=== PATIENT | female | born 1955 | race Caucasian/White ===

== ENCOUNTER 2016-11-08 14:45 | Inpatient (IN) | payer MEDICARE, MEDICAID ==
[~2016-11-08] VITALS: Ht 175.3 cm; Wt 75.8 kg
--- NOTE | ~2016-11-08 | CON ---
PATIENT'S NAME: PEGGY ALVAREZ [facility] AGE: 61 Y [address] ROOM: [address] [place], [place] [address] LOCATION: [facility] ADMIT DATE: 11/08/2016 Consultation DISCHARGE DATE: FAMILY PHYSICIAN: Yamileth Kebede MD ATTENDING PHYSICIAN: JOHN ASHER DATE OF CONSULTATION: 11/09/2016 REFERRING PHYSICIAN: Bill COLLADO MD This is a [facility]ph[facility] consultation. REASON FOR CONSULTATION: History of renal allograft transplant, high-risk medications. HISTORY OF PRESENT ILLNESS: This is a 61-year-old female patient, who is a previous patient of Dr. Savage, who has had a history of end-stage renal disease, status post renal allograft transplant, on immunosuppressive therapy of Prograf and Deltasone. The patient does report a quite extensive recent past medical history that includes histoplasmosis diagnosis on October 10, 2016 at [facility]. The patient was started on Vfend at that time, and her CellCept immunosuppressive therapy was held. She does usually take Prograf 0.5 mg every morning and 1 mg every evening. The patient's transplant did go well according to the patient. She was hospitalized for approximately 6 days and did well throughout her therapy. She did return for a routine checkup and was noted to have a collapsed ureter of the transplanted kidney. At that time, a balloon was attempted, however, was unsuccessful. The patient did undergo a nephroureteral stent at that time and has had routine stent exchanges every 3 months since 2010. The patient's baseline creatinine has been 1.3, however, over the last few weeks, it has been noted to be greater than 2. Today, creatinine is 1.9. At the time of exam, the patient has been taking her Prograf as well as steroid therapy. CellCept is being held. She continues to follow with Dr. Livingston and Dr. Crockett at [facility]. The patient does report that she continues to straight cath all of her voids prior to her admission. The patient is scheduled to undergo closed ORIF of the right elbow with Dr. Asher later this afternoon. It has been asked Dr. Savage to provide recommendations for the patient's immunosuppressive therapy as well as monitoring her kidney status throughout her hospitalization. PAST MEDICAL HISTORY: As listed above includin. Type 2 diabetes. PATIENT'S NAME: PEGGY ALVAREZ [facility] AGE: 61 Y [address] ROOM: [address] [place], [place] [address] LOCATION: [facility] ADMIT DATE: 11/08/2016 Consultation DISCHARGE DATE: FAMILY PHYSICIAN: Yamileth Kebede MD ATTENDING PHYSICIAN: JOHN ASHER 2. History of end-stage renal disease with AV fistula placement. 3. Status post renal allograft transplant, on immunosuppressive therapy. 4. Hypertension. 5. Hypothyroidism. 6. Recent right elbow fracture. 7. History of recent diagnosis of histoplasmosis at [facility]. PAST SURGICAL HISTORY: 1. AV fistula placement. 2. Cholecystectomy. 3. Renal allograft transplant in 2010. 4. Coronary angiogram in 2007. 5. Tunneled dialysis catheter placement and AV fistula placement in 2007. FAMILY HISTORY: Reviewed and noncontributory. The patient denies any history of kidney disease or dialysis in her family. SOCIAL HISTORY: The patient is a former smoker. She denies any current smoking. She does live in an assisted living in [place], [place]. She did recently relocate from [place], [place] in which at that time, she was a dialysis patient of Dr. Bagley at the [facility]. This was between 2007 and 2010 at the time of transplant. She does deny any use of alcohol use. ALLERGIES: SULFA. CURRENT HOME MEDICATIONS: 1. Tylenol 325 mg 2 tablets p.o. q.6 hours. 2. Norvasc 5 mg daily. 3. Coreg 25 mg twice a day. 4. Lasix 40 mg twice a day. 5. Glucagon 1 mg IM p.r.n. hypoglycemia. 6. Humulin R as directed. 7. Levothyroxine 50 mcg daily. 8. Melatonin 3 mg daily. 9. Metolazone 2.5 mg 3 times a week on Monday, Monday, and Monday. 10. Multivitamin 1 tablet daily. 11. NPH 6 units subcu daily before supper and 8 units subcu daily before breakfast. 12. Deltasone 10 mg daily. 13. Ranitidine 150 mg 1 tablet daily. 14. Tacrolimus 0.5 mg every morning and 1 mg every evening. 15. Vfend 200 mg twice a day. PATIENT'S NAME: PEGGY ALVAREZ [facility] AGE: 61 Y [address] ROOM: [address] [place], [place] [address] LOCATION: [facility] ADMIT DATE: 11/08/2016 Consultation DISCHARGE DATE: FAMILY PHYSICIAN: Yamileth Kebede MD ATTENDING PHYSICIAN: JOHN ASHER REVIEW OF SYSTEMS: GENERAL: Denies any fever, chills, or night sweats. EYES: No double vision or blurred vision. NOSE: No epistaxis or rhinorrhea. MOUTH: No gingival bleeding. THROAT: No sore throat, hoarseness, or cough. RESPIRATORY: Denies wheezing or hemoptysis. CARDIOVASCULAR: Denies chest pain or palpitations. GASTROINTESTINAL: Denies nausea, vomiting, or diarrhea. HEMATOLOGICAL: Denies bruising or easy bleeding. GENITOURINARY: Continues to make urine. Denies any frequency, urgency, or hesitancy. She does continue to have to self-catheterize to void. MUSCULOSKELETAL: Right arm pain secondary to elbow fracture. IMMUNOLOGICAL: Positive for history of immunosuppressive therapy secondary to renal allograft transplantation. History of histoplasmosis infection. PHYSICAL EXAMINATION: VITAL SIGNS: Blood pressure 125/53, pulse 62, respirations 16, temperature is 97.8. Weight is 75.8 kg. GENERAL: On exam, this is an alert, oriented, slightly forgetful female patient, who is in no acute distress. HEENT: Her head is normocephalic and atraumatic. Eyes: Pupils are equal, round, react briskly to light and accommodation. Nose: Midline. Mouth: No gingival bleeding. Throat: No lymphadenopathy or carotid bruits. No JVD. LUNGS: Sounds are diminished in the bases bilaterally. CARDIOVASCULAR: Regular rate and rhythm with a grade 1 to 2 over 6 systolic ejection murmur heard best at the right second intercostal space. ABDOMEN: Soft, nontender, and nondistended. Bowel sounds positive. EXTREMITIES: Show no signs of peripheral edema, clubbing, or cyanosis. Right upper extremity is in a sling. SKIN: Warm and dry. LABORATORY DATA: WBC 7.4, hemoglobin 10.7, platelets 213. BUN 58, creatinine 2, glucose 185, potassium 5, chloride 102, CO2 of 26. Total bilirubin is 0.3. INR is 1. IMAGING DATA: X-ray shows cardiac enlargement with mild vascular congestion. EKG shows left bundle branch block with no acute ST-T wave abnormalities. ASSESSMENT AND PLAN: 1. Chronic kidney disease stage 3, status post renal allograft transplant. The patient is currently taking Prograf as well as prednisone. We will continue her on her current immunosuppressive therapy. The patient has PATIENT'S NAME: PEGGY ALVAREZ [facility] AGE: 61 Y [address] ROOM: [place] [address] LOCATION: [facility] ADMIT DATE: 11/08/2016 Consultation DISCHARGE DATE: FAMILY PHYSICIAN: Yamileth Kebede MD ATTENDING PHYSICIAN: JOHN ASHER been made aware of risk of poor healing with her immunosuppression. We have requested records from [facility] as to the reasoning behind the patient not taking her CellCept at this time. We have contacted Lizbeth, her mail service coordinator, for further recommendations. 2. Right elbow fracture. Per Orthopedics. The patient is scheduled for a close reduction later this afternoon. 3. Hypertension, stable. 4. History of histoplasmosis, on Vfend. Continue current medications. Continue to hold CellCept at this time until confirmation and verification from [facility]. Further recommendations will be forthcoming. This patient has been seen and assessed by Dr. Savage. Her care is being conducted in consultation with Dr. Savage as well as me. We will plan further recommendations as they are forthcoming. In the interim, the patient is to continue her current medications at this time. DENY KANG DNP, MARKETING REPORTING ANALYST FOR M ABIEL SAVAGE MD ENS/modl /[id number] d: 11/10/16 0030 t: 12/05/16 0934, CONSULTATION REPORT
--- NOTE | ~2016-11-08 | DS ---
PATIENT'S NAME: PEGGY ALVAREZ [facility] AGE: 61 Y [address] ROOM: [address] [place], [place] [address] LOCATION: [facility] ADMIT DATE: 11/10/2016 Discharge Summary DISCHARGE DATE: 11/11/2016 FAMILY PHYSICIAN: Yamileth Kebede MD ATTENDING PHYSICIAN: Marielos Guajardo DISCHARGE DIAGNOSES: 1. Right supracondylar fracture status post closed reduction with percutaneous pinning. 2. Staphylococcus aureus, urinary tract infection and a transplanted kidney. 3. Diabetes mellitus type 2. 4. Hyperkalemia. 5. Chronic kidney disease with increasing creatinine. 6. Nonischemic cardiomyopathy. 7. History of histoplasmosis. 8. Essential hypertension. 9. Hypothyroidism. CONSULTING PHYSICIANS: Dr. Barreto and Dr. Price. HOSPITAL COURSE: Please refer to the admitting history and physical as dictated by Dr. Tavarez. Briefly, the patient was admitted to [facility] after sustaining a fall. She suffered from a right elbow fracture. Dr. Price took her for right supracondylar closed reduction with percutaneous pinning done on 11/09/2016. The patient tolerated the procedure without difficulty. Her blood sugars were managed with sliding scale insulin and Levemir. The patient's baseline creatinine was 1.9. Throughout her hospitalization, her creatinine was increasing up to 2.4 on the day of transfer. Her potassiums were elevated up to 5.4, the patient received Kayexalate as well as insulin and dextrose 50%. She was hydrated on the day of discharge, with normal saline for 1 L. Due to her increasing creatinine and renal allograft, not on CellCept, it was felt as though she should be transferred to a higher level of care per her Kidney Transplant Team. For the patient's renal allograft, she was on Prograf and prednisone. The patient did have a stent in her transplanted kidney that was due for an exchange on Monday. Urine culture revealed she was growing Staph aureus in her urine. She was treated on IV antibiotics. Zyvox which was started on 11/10/2016. The patient from the right upper extremity fracture was doing well. Her arm was casted. She was ambulatory with physical therapy and occupational therapy. The patient was on Lovenox for DVT prophylaxis. On 11/11/2016, due to her Staph aureus UTI with stent in the transplanted kidney, which did need to be changed as well as her increasing creatinine and potassium, it was felt as though she should be transferred to a higher level of care. Dr. Guajardo did call and speak with [facility] arranged for transfer with Dr. Crockett as the accepting physician. PATIENT'S NAME: PEGGY ALVAREZ [facility] AGE: 61 Y [address] ROOM: [place] [address] LOCATION: [facility] ADMIT DATE: 11/10/2016 Discharge Summary DISCHARGE DATE: 11/11/2016 FAMILY PHYSICIAN: Yamileth Kebede MD ATTENDING PHYSICIAN: Marielos Guajardo LABORATORY DATA: Sodium 136 upon admit, on the day of discharge 133; potassium 5.0 on the day of discharge, it did go as high as 5.7 on November 10 at 1403 hours, the following morning 5.4; chloride 99; CO2 22 to 26; anion gap 17.4 at the time of discharge. Blood sugars 140 on admit, prior to discharge her sugars were increasing to 347. BUN 58 upon admit, 68 prior to transfer. Creatinine 2.0 on admit, did decrease to 1.9, 2.4 prior to transfer. Albumin 2.9. Alkaline phosphatase 128, AST 15, ALT 12, phosphorus 4.4. GFR 33 on admit, 25 prior to her transfer. Mag 2.0. WBCs 5.9 to 7.8, hemoglobin 9.9 to 10.8, hematocrit 31.2 to 33.7, platelets 187. Urine: Leukocytes 500, nitrites negative, protein 30, glucose negative, ketones negative, wbc's 20-50, rbc's 10-20, bacteria moderate, moderate wbc clumps. Urine cultures, Staphylococcus aureus greater than 100,000. TRANSFER INSTRUCTIONS: The patient will be transferred to [facility] under the care of Dr. Crockett. DIET: Renal. MEDICATIONS: 1. Zyvox 600 mg twice daily. 2. Normal saline 100 mL/h x1 L. 3. Norvasc 5 mg p.o. q.h.s. 4. Coreg 25 mg p.o. twice daily. 5. Lasix 40 mg p.o. twice daily, hold until at [facility]. 6. Levemir 10 units subcu twice daily. 7. Glucagon pen 1 mg as needed for hypoglycemia. 8. Novolin R custom sliding scale. 9. Levothyroxine 50 mcg p.o. daily. 10. Multivitamin one tablet daily. 11. Prednisone 10 mg p.o. daily. 12. Prograf 1 mg p.o. twice daily. 13. VFEND 200 mg p.o. twice daily. 14. Tylenol 650 mg p.o. every 6 hours as needed for pain. 15. Melatonin 3 mg p.o. daily p.r.n. insomnia. 16. Percocet 1 or 2 tablets p.o. every 6 hours as needed for pain. Thank you for allowing us to participate in the care of this patient as she has been hospitalized at [facility]. ARELY FUENTES APRN FOR MARIELOS GUAJARDO MD PATIENT'S NAME: PEGGY ALVAREZ [facility] AGE: 61 Y [address] ROOM: [place] [address] LOCATION: [facility] ADMIT DATE: 11/10/2016 Discharge Summary DISCHARGE DATE: 11/11/2016 FAMILY PHYSICIAN: Yamileth Kebede MD ATTENDING PHYSICIAN: Marielos Guajardo/laurenl /[id number] d: 11/12/16 1451 t: 11/15/16 1653, DISCHARGE SUMMARY
--- NOTE | ~2016-11-08 | CON ---
[facility] 61 Y [address] ROOM: [place] [address] LOCATION: [facility] ADMIT DATE: 11/08/2016 Consultation DISCHARGE DATE: FAMILY PHYSICIAN: Yamileth Kebede MD ATTENDING PHYSICIAN: JOHN ASHER REFERRING PHYSICIAN: Bill COLLADO MD CHIEF COMPLAINT: Right elbow fracture. HISTORY OF PRESENT ILLNESS: The patient is a 61-year-old female with history of type 2 diabetes mellitus; end-stage renal disease, status post renal transplant, on immunosuppressive; hypertension; hypothyroidism, who presents here with right elbow fracture. The patient currently lives in a halfway and had a mechanical fall which resulted in a right elbow fracture. The patient was admitted under Dr. Asher for a possible closed reduction. The patient reports that she has a history of renal failure and is on kidney transplant at [facility]. Currently is on tacrolimus and prednisone. The patient also reports of history of histoplasmosis while on this medication and is chronically on voriconazole. The patient also has a history of systolic nonischemic cardiomyopathy. The patient lives in halfway presently after she was discharged from the [facility] after she was admitted for pulmonary histoplasmosis. The patient currently denies any worsening of shortness of breath, chest pain, abdominal pain productive, nausea, vomiting, fever, and chills. The patient reports that she can walk 1-2 blocks without shortness of breath or chest pain. The patient was recently seen by sports umpire and her insulin dose was increased. PAST MEDICAL HISTORY: Ischemic cardiomyopathy; type 2 diabetes mellitus; chronic kidney disease, status post transplant; hypertension; hypothyroidism; and histoplasmosis. SURGICAL HISTORY: AV fistula placement, cholecystectomy, kidney transplant, and coronary angiogram in 2007. FAMILY HISTORY: Father from accident. Mother, reports that she from old age. SOCIAL HISTORY: She is a former smoker, does not smoke any more. She lives in a halfway. Denies use of alcohol. MEDICATIONS: Currently being reconciled. PATIENT'S NAME: PEGGY ALVAREZ [facility] AGE: 61 Y [address] ROOM: [place] [address] LOCATION: [facility] ADMIT DATE: 11/08/2016 Consultation DISCHARGE DATE: FAMILY PHYSICIAN: Yamileth Kebede MD ATTENDING PHYSICIAN: JOHN ASHER REVIEW OF SYSTEMS: All systems have been reviewed and are negative except for what mentioned in the HPI. PHYSICAL EXAMINATION: VITAL SIGNS: Temperature 98.1, blood pressure 152/75, pulse 66, and respiratory rate 16. GENERAL APPEARANCE: The patient is alert and awake, sitting on the bed with right upper extremity sling. HEAD: Normocephalic, atraumatic. EYES: Extraocular muscle intact. NOSE: No nasal discharge. MOUTH: Moist oral mucosa. EYES: Extraocular muscle intact. CHEST: Clear to auscultation bilaterally. HEART: Grade 1 systolic murmur. Regular rate and rhythm. ABDOMEN: Soft, nontender, and nondistended. SKIN: Warm to touch. MUSCULOSKELETAL: Right sling in place. CROSS CUT SAWYER: The patient is alert oriented x3. Motor and sensory grossly intact. DICTATION ENDS HERE. MD LEN YEN/bert /[id number] d: 11/09/16 0002 t: 11/13/16 1233, CONSULTATION REPORT
--- NOTE | ~2016-11-08 | OR ---
PATIENT'S NAME: SUSAN ALVAREZOL Kushal [facility] AGE: 61 Y [address] ROOM: [place] [address] LOCATION: [facility] ADMIT DATE: 11/08/2016 OR/Procedure Report DISCHARGE DATE: FAMILY PHYSICIAN: Yamileth Kebede MD ATTENDING PHYSICIAN: JOHN ASHER SURGEON: John Asher MD MAC OPERATOR: Glen Alarcon PA-C DATE OF PROCEDURE: 11/09/2016 PREOPERATIVE DIAGNOSIS: Right supracondylar fracture of the humerus. POSTOPERATIVE DIAGNOSIS: Right supracondylar fracture of the humerus. PROCEDURE: 1. Closed reduction and percutaneous pinning of right supracondylar fracture of the elbow. 2. Placement of long-arm cast intraoperatively. 3. Use of intraoperative fluoroscopy, less than 1 hour. ANESTHESIA: General with LMA. FLUIDS: See anesthesia report. ESTIMATED BLOOD LOSS: Less than 10 mL. TOURNIQUET: None. SPECIMEN: None. COMPLICATIONS: None. DISPOSITION: Stable in PACU. COUNTS: All counts were correct. IMPLANTS: Include Synthes 0.062 smooth K-wires x3. INDICATIONS: Ms. Alvarez is a pleasant 61-year-old female, who underwent the noted procedures above. The risks, benefits, and alternatives to pursuing surgical intervention were discussed with the patient and family in detail. The patient elected to proceed with surgery. The patient has multiple medical comorbidities and on admission in the hospital medical clearance was required. She is cleared for surgery today. Anesthesia was consulted for their perioperative evaluation of the patient. I marked the patient's right upper extremity indicating correct surgical site. PATIENT'S NAME: PEGGY ALVAREZ [facility] AGE: 61 Y [address] ROOM: [address] [address] LOCATION: [facility] ADMIT DATE: 11/08/2016 OR/Procedure Report DISCHARGE DATE: FAMILY PHYSICIAN: Yamileth Kebede MD ATTENDING PHYSICIAN: JOHN ASHER DESCRIPTION OF PROCEDURE: The patient was brought from the holding area to the operating room. A time-out was performed. General anesthesia was administered with placement of LMA. The right upper extremity was then prepped and draped in a sterile fashion. Intraoperative fluoroscopy was introduced. A closed reduction of the fracture of the supracondylar portion of the humerus was undertaken. It reduced well with closed manipulation. With my PA holding reduction in place, I placed 2 K- wires laterally under fluoroscopic guidance. This bridged the fracture well and provided adequate fixation. The fracture was well reduced and the pins were holding the reduction in place. An effort to provide some more torsional strength, I elected to place a medial K-wire. I placed the medial K-wire and confirmed its position fluoroscopically. The elbow was taken through range of motion and the fracture reduction was stable. Final fluoroscopic images revealed evidence of a successful closed reduction and percutaneous pinning of right elbow supracondylar fracture. The pins were then cut and covered. Sterile dressings were placed in the form of Xeroform, followed by 4x4, and Webril. The skin tear was covered with a nonadherent dressing. The patient was then placed into a well-padded long-arm cast on the right upper extremity to bolster and provide support for the reduction. Final fluoroscopic images revealed evidence of a successful closed reduction and percutaneous pinning of a supracondylar fracture of the right humerus with a well-padded fiberglass cast in place. The patient was then transferred from the operating room table onto the stretcher and extubated. A sling was placed to secure the right arm. She was brought to the recovery room in stable condition. There were no intraoperative complications noted. Of note, my PA, Glen Alarcon PA-C, played an integral role in the intraoperative care of this patient. This included preoperative positioning, intraoperative expert retraction, and closing and dressing functions and split casting functions. IMPRESSION: The patient is status post the noted procedures above. PLAN: The patient will be nonweightbearing on the right upper extremity. She will be in a long-arm cast. She will be instructed to rest, ice, and elevate the arm going forward. Postoperative pain control will be in the form of Percocet for pain control. DVT prophylaxis will be mechanical in nature. She will remain nonweightbearing on the right upper extremity. Otherwise, she may ambulate. We will observe her overnight in the hospital. Postoperative PATIENT'S NAME: PEGGY ALVAREZ [facility] AGE: 61 Y [address] ROOM: [address] [address] LOCATION: N ADMIT DATE: 11/08/2016 OR/Procedure Report DISCHARGE DATE: FAMILY PHYSICIAN: Yamileth Kebede MD ATTENDING PHYSICIAN: JOHN ASHER antibiotics will be administered per routine. We will continue to follow the patient closely in the postoperative period. MD ALDA DUVALD/modl /[id number] d: 11/10/16 0037 t: 11/10/16 0840, OPERATIVE SUMMARY
--- NOTE | ~2016-11-08 | CON ---
PATIENT'S NAME: PEGGY ALVAREZ [facility] AGE: 61 Y [address] ROOM: [id number] [place], [place] [address] LOCATION: [facility] ADMIT DATE: 11/08/2016 Consultation DISCHARGE DATE: FAMILY PHYSICIAN: Yamileth Kebede MD ATTENDING PHYSICIAN: JOHN ASHER DATE OF CONSULTATION: 11/08/2016 REFERRING PHYSICIAN: Bill COLLADO MD ADDENDUM: LABORATORY DATA: CBC shows white blood cell of 7.4, hemoglobin 10.7, and platelet of 213. Chem panel shows BUN of 58, creatinine of 2, glucose of 185, potassium of 5, chloride of 102, CO2 of 26, and total bilirubin of 0.3. INR of 1. X-ray shows cardiac enlargement with mild vascular congestion. EKG shows left bundle branch block with sinus rhythm. ASSESSMENT AND PLAN: 1. Right elbow fracture. The patient is scheduled by Dr. Asher for closed reduction with nerve block with pinning. This surgery does not require general anesthesia. Thus, the patient is stable from medical standpoint for closed reduction with pinning with nerve block. We will keep the patient n.p.o. after midnight for possible closed reduction with pinning. 2. Chronic kidney disease, stage 3, status post kidney transplant. The patient is currently on tacrolimus and prednisone. Continue tacrolimus and prednisone. Consulted Dr. Barreto with our [facility]. A long discussion made with the patient about poor healing with tacrolimus. Recommend to have 3 times more than the required date for leaving sutures or raeann if there are any suture or staple done on the surgery due to poor healing while the patient is on tacrolimus. The patient understands the risk of wound infection and healing issues with current medication. 3. Nonischemic cardiomyopathy. X-ray shows some mild vascular congestion. We will give the patient 40 mg intravenous Lasix now and continue 40 mg intravenous p.o. Lasix b.i.d. We will also continue the patient's beta- maikel. 4. Diabetes mellitus type 2. The patient currently is on 8 mg detemir at morning and 6 in the evening with sliding scale. Due to surgery, we will decrease insulin regimen to 4 units b.i.d. of detemir and continue sliding scale insulin. 5. Hypertension, stable, continue medication. 6. History of histoplasmosis, on voriconazole, continue voriconazole. 7. Hypothyroidism, continue Synthroid. PATIENT'S NAME: PEGGY ALVAREZ [facility] AGE: 61 Y [address] ROOM: [address] [address] LOCATION: [facility] ADMIT DATE: 11/08/2016 Consultation DISCHARGE DATE: FAMILY PHYSICIAN: Yamileth Kebede MD ATTENDING PHYSICIAN: JOHN ASHER Greater than 60 minutes was spent on the patient care. Greater than 50% of time was spent on chart evaluation, direct discussion with the patient, and case discussion with Dr. Asher and Dr. Barreto. MD LEN YEN/bert /[id number] d: 11/09/16 0034 t: 11/13/16 1236, CONSULTATION REPORT
[2016-11-08] MEDS ORDERED: TYLENOL325 MG PO (16:17)
[2016-11-08] MEDS ORDERED: MELATONIN3 MG PO (16:18)
[2016-11-08] MEDS ORDERED: GLUCAGON 1 MG PE1 MG IM (16:19)
[2016-11-08] MEDS ORDERED: LASIX40 MG PO (16:20)
[2016-11-08] MEDS ORDERED: ZAROXOLYN2.5 MG PO (16:22)
[2016-11-08 16:23] LABS: BASOPHIL % 0.4 %; EOSINOPHIL % 0.1 %; HEMATOCRIT 33.7 % (33.0-46.0); HEMOGLOBIN 10.7 g/dL (10.0-15.0); IMMATURE GRANULOCYTE # 0.1 K/uL (0.0-0.3); IMMATURE GRANULOCYTE % 0.7 %; LYMPHOCYTE # 0.7 K/uL (0.8-4.0); LYMPHOCYTE % 8.9 %; MCH 30.8 pg (27.0-34.0); MCHC 31.8 gm/dL (32.0-36.5); MCV 97.1 fl (83.0-98.0); MONOCYTE # 0.6 K/uL (0.0-1.0); MONOCYTE % 7.4 %; MPV 9.5 fl (9.4-12.4); NEUTROPHIL # (ANC) 6.1 K/uL (1.8-7.8); NEUTROPHIL % 82.5 %; NRBC % 0 /100WBC (0-0.00); PLATELET COUNT 213 K/uL (150-450); RBC 3.47 M/uL (3.50-5.50); RDW-CV 14.5 % (11.9-14.6); WBC 7.4 K/uL (4.0-11.0)
[2016-11-08] MEDS ORDERED: COREG25 MG PO (16:24)
[2016-11-08] MEDS ORDERED: PROGRAF0.5 MG PO (16:27)
[2016-11-08] MEDS ORDERED: VFEND200 MG PO (16:27)
[2016-11-08] MEDS ORDERED: NORVASC5 MG PO (16:29)
[2016-11-08] MEDS ORDERED: THERAGRAN-M1 TAB PO (16:31)
[2016-11-08] MEDS ORDERED: LEVOTHROID (SY50 MCG PO (16:31)
[2016-11-08] MEDS ORDERED: DELTASONE10 MG PO (16:32)
[2016-11-08] MEDS ORDERED: ACID REDUCER150 MG PO (16:33)
[2016-11-08 16:34] LABS: INR - (THERAPEUTIC) 1.04 (0.92-1.07); PROTIME 10.9 SECONDS (9.8-11.4); PTT 29 SECONDS (25-32)
[2016-11-08] MEDS ORDERED: HUMULIN N100 UNIT/2 SUB-Q ×2 (16:35→16:36)
[2016-11-08 16:43] LABS: ALBUMIN 3.2 gm/dL (3.5-5.0); CALCIUM 8.6 mg/dL (8.5-10.5); TOTAL BILIRUBIN 0.3 mg/dL (0.0-1.5); TOTAL PROTEIN 6.8 g/dL (6.0-8.4)
[2016-11-08] MEDS ORDERED: HUMULIN R100 UNIT/1 SUB-Q (16:46)
[2016-11-09 02:57] LABS: BILIRUBIN URINE NEGATIVE (NEGATIVE); BLOOD URINE 50 /UL (NEGATIVE); COLOR URINE YELLOW (YELLOW); GLUCOSE URINE NEGATIVE (NEGATIVE); KETONE URINE NEGATIVE (NEGATIVE); LEUKOCYTES URINE 500 /UL (NEGATIVE); NITRITE URINE NEGATIVE (NEGATIVE); PH URINE 6.5 (4.0-8.0); PROTEIN URINE 30 mg/dL (NEGATIVE); TURBIDITY URINE CLEAR (CLEAR); UROBILINOGEN URINE NORMAL (NORMAL)
[2016-11-09 03:10] LABS: BACTERIA URINE MODERATE (NEGATIVE); EPITHELIAL URINE 0-2 #/HPF (NEGATIVE); WBC CLUMPS URINE MODERATE (NEGATIVE); WBC URINE 20-50 #/HPF (NEGATIVE)
[2016-11-09 05:50] LABS: ALBUMIN 2.8 gm/dL (3.5-5.0); ANION GAP 13.9 (10.0-19.0); CALCIUM 8.3 mg/dL (8.5-10.5); CREATININE 1.9 mg/dL (0.5-1.1); POTASSIUM 4.9 mMol/L (3.7-5.1); TOTAL PROTEIN 6.3 g/dL (6.0-8.4)
[2016-11-09 05:51] LABS: TOTAL BILIRUBIN 0.4 mg/dL (0.0-1.5)
[2016-11-10 06:10] LABS: HEMATOCRIT 33.7 % (33.0-46.0); HEMOGLOBIN 10.8 g/dL (10.0-15.0); MCV 96.8 fl (83.0-98.0); MPV 9.9 fl (9.4-12.4); PLATELET COUNT 216 K/uL (150-450); RBC 3.48 M/uL (3.50-5.50); RDW-CV 14.3 % (11.9-14.6); WBC 5.9 K/uL (4.0-11.0)
[2016-11-10 06:30] LABS: ALBUMIN 2.9 gm/dL (3.5-5.0); ANION GAP 13.5 (10.0-19.0); CALCIUM 8.4 mg/dL (8.5-10.5); POTASSIUM 5.5 mMol/L (3.7-5.1); TOTAL PROTEIN 6.6 g/dL (6.0-8.4)
[2016-11-10 06:32] LABS: TOTAL BILIRUBIN 0.3 mg/dL (0.0-1.5)
[2016-11-10 07:59] LABS: ABSOLUTE NEUTROPHIL CT (ANC) 5.3 K/uL (1.8-7.8); BANDED NEUTROPHIL # 0.1 K/uL (0.0-0.1); BANDED NEUTROPHILS % 2 %; LYMPHOCYTE # 0.5 K/uL (0.8-4.0); LYMPHOCYTE % 8 %; MONOCYTE # 0.1 K/uL (0.0-1.0); SEGMENTED NEUTROPHIL # 5.2 K/uL (1.8-7.8); SEGMENTED NEUTROPHIL % 88 %
[2016-11-11 06:33] LABS: ALBUMIN 2.9 gm/dL (3.5-5.0); ANION GAP 17.4 (10.0-19.0); CALCIUM 8.3 mg/dL (8.5-10.5); CREATININE 2.4 mg/dL (0.5-1.1); POTASSIUM 5.4 mMol/L (3.7-5.1); TOTAL PROTEIN 6.8 g/dL (6.0-8.4)
[2016-11-11 06:35] LABS: TOTAL BILIRUBIN 0.2 mg/dL (0.0-1.5)
[2016-11-11 06:39] LABS: BASOPHIL % 0.1 %; HEMATOCRIT 31.2 % (33.0-46.0); HEMOGLOBIN 9.9 g/dL (10.0-15.0); IMMATURE GRANULOCYTE # 0.1 K/uL (0.0-0.3); IMMATURE GRANULOCYTE % 0.8 %; LYMPHOCYTE # 0.9 K/uL (0.8-4.0); LYMPHOCYTE % 11.4 %; MCH 30.9 pg (27.0-34.0); MCHC 31.7 gm/dL (32.0-36.5); MCV 97.5 fl (83.0-98.0); MONOCYTE # 0.6 K/uL (0.0-1.0); MONOCYTE % 8.2 %; MPV 9.4 fl (9.4-12.4); NEUTROPHIL # (ANC) 6.2 K/uL (1.8-7.8); NEUTROPHIL % 79.5 %; NRBC % 0 /100WBC (0-0.00); PLATELET COUNT 187 K/uL (150-450); RDW-CV 14.3 % (11.9-14.6); WBC 7.8 K/uL (4.0-11.0)
== END 2016-11-11 19:45 | disposition critical access hospital (66) | DRG 492 ==
LOC: G3N 14:45
PROVIDERS: Internal Medicine; Nurse Practitioner Family; Physician Assistant Medical; ADMIT Orthopaedic Surgery Adult Reconstructive Orthopaedic Surgery
PROC: 0PSF34Z Reposition Right Humeral Shaft with Internal Fixation Device, Percutaneous Approach (ICD-10-PCS; principal; 2016-11-09)
DX: S42.401A Unspecified fracture of lower end of right humerus, initial encounter for closed fracture (principal); N18.6 End stage renal disease; I42.9 Cardiomyopathy, unspecified; I12.0 Hypertensive chronic kidney disease with stage 5 chronic kidney disease or end stage renal disease; E11.22 Type 2 diabetes mellitus with diabetic chronic kidney disease; Z94.0 Kidney transplant status; E03.9 Hypothyroidism, unspecified; Z99.2 Dependence on renal dialysis; Z79.4 Long term (current) use of insulin; E87.5 Hyperkalemia; W18.30XA Fall on same level, unspecified, initial encounter; Z91.81 History of falling; Y93.9 Activity, unspecified; Y92.039 Unspecified place in apartment as the place of occurrence of the external cause; E78.00 Pure hypercholesterolemia, unspecified
CPT/HCPCS: G0378; J0690; J1940; J2020; J3010; J7030; J7050; J7507; J7512